=== PATIENT | female | born 1960 | race Caucasian/White ===

== ENCOUNTER 2019-09-04 12:52 | Inpatient (IN) | payer OTHER ==
[~2019-09-04] VITALS: Ht 167.6 cm; Wt 56.7 kg
--- NOTE | 2019-09-04 13:05 | NUR ---
Patient to ER bed 8 to gown for evaluation. Side rails up. Report given to HOLLIS Leon.
[2019-09-04 13:06] VITALS: BP_SYST 143
--- NOTE | 2019-09-04 13:06 | NUR ---
Patient is awake, alert, and oriented x4. Patient is complaining of lower abdominal pain since yesterday. She reports being on amoxicillin for a cold.
--- NOTE | 2019-09-04 13:07 | NUR ---
ER Dr. Jones at bedside examining patient.
[2019-09-04] MEDS ORDERED: NACL 0.9% 1,000 ML IV ONE (13:15)
[2019-09-04] MEDS ORDERED: KETOROLAC TROMETHAMINE 30 MG VIAL IVP ONE (13:15)
--- NOTE | 2019-09-04 13:20 | NUR ---
Patient transported to radiology via wheelchair, accompanied by chief technician x ray.
--- NOTE | 2019-09-04 13:27 | NUR ---
Patient returned from radiology via wheelchair.
[2019-09-04 13:56] LABS: BASOPHILS % (AUTO) 0.5 % (0.0-2.0); EOSINOPHILS % (AUTO) 0.5 % (0.0-4.0); HEMOGLOBIN 10.9 g/dL (12.0-16.0); LYMPHOCYTES # (AUTO) 1.2 K/uL (1.0-5.5); MEAN CORPUSCULAR HEMOGLOBIN 29 pg (27-31); MEAN CORPUSCULAR HGB CONC 34 % (32-36); MEAN CORPUSCULAR VOLUME 86 fL (79.0-98.0); MONOCYTES # (AUTO) 0.5 K/uL (0.0-1.0); MONOCYTES % (AUTO) 6.1 % (1.7-9.3); NEUTROPHILS # (AUTO) 6.7 K/uL (1.8-7.7); NEUTROPHILS % (AUTO) 78.9 % (40.0-70.0); PLATELET COUNT (AUTO) 305 K/uL (130-430); RED BLOOD CELL COUNT(AUTO) 3.72 MIL/uL (4.2-6.2); WHITE BLOOD COUNT (AUTO) 8.5 K/uL (4.8-10.8)
[2019-09-04 14:06] LABS: CALCIUM 8.1 mg/dL (8.4-11.0); CREATININE 0.62 mg/dL (0.55-1.30); POTASSIUM 3.2 mmol/L (3.5-5.1)
[2019-09-04 14:12] LABS: ALBUMIN 2.9 g/dL (3.4-4.8); TOTAL BILIRUBIN 0.6 mg/dL (0.0-1.0)
[2019-09-04 14:44] LABS: BILIRUBIN,URINE NEGATIVE (NEGATIVE); BLOOD, URINE NEGATIVE (NEGATIVE); CLARITY/URINE CLEAR (CLEAR); COLOR,URINE YELLOW (YELLOW); GLUCOSE,URINE NEGATIVE (NEGATIVE); KETONES,URINE TRACE (NEGATIVE); LEUKOCYTE ESTERASE ,URINE NEGATIVE (NEGATIVE); NITRITE, URINE NEGATIVE (NEGATIVE); PROTEIN URINE NEGATIVE (NEGATIVE); UROBILINOGEN,URINE 0.2 (0.2-1.0)
[2019-09-04] MEDS ORDERED: ONDANSETRON HCL 4 MG/2 ML VIAL IVP ONE (15:00)
[2019-09-04] MEDS ORDERED: MORPHINE 4 MG/ML INJ. SYRINGE IVP ONE (15:00)
[2019-09-04] MEDS ORDERED: metroNIDAZOLE 500 mg/NS 100 ML IV ONE (15:00)
[2019-09-04] MEDS ORDERED: LEVOFLOXACIN 500 MG/D5W 100 ML IV ONE (15:00)
--- NOTE | 2019-09-04 16:08 | NUR ---
Orders recieved from Dr. Mota, entered by HOLLIS.
--- NOTE | 2019-09-04 16:09 | NUR ---
Unable to obtain medication list at this time.
--- NOTE | 2019-09-04 16:10 | NUR ---
Patient will be admitted to care of Dr. Mota. Admitted to medsurg unit. Waiting for room assignment. Belongings list completed. Complete and up to date summary report printed. SBAR report to be given at bedside with opportunity for questions.
[2019-09-04] MEDS: KCL 20 mEq in D5/0.45NS 1000mL 1,000 ML IV SCH (16:15)
[2019-09-04 17:03] VITALS: BP_SYST 126
--- NOTE | 2019-09-04 17:03 | NUR ---
Admission: Received from ER on a gurney with the diagnosis of Acute Colitis. Patient is oriented, ambulatory from gurney to bed with steady gait. Accompanied by . Oriented to room, call light within reach.
--- NOTE | 2019-09-04 18:30 | NUR ---
patient tolerates dinner without distress.
[2019-09-04] MEDS ORDERED: KCL 20 mEq in D5/0.45NS 1000mL 1,000 ML IV ONE (18:32)
[2019-09-04] MEDS ORDERED: AZEL6DRO5 EACH EYE (19:29)
[2019-09-04] MEDS ORDERED: OSCD500 PO (19:29)
[2019-09-04] MEDS ORDERED: LORA10TA7 PO (19:29)
[2019-09-04] MEDS ORDERED: NEU300 PO (19:29)
[2019-09-04] MEDS ORDERED: CHOL200075 PO (19:29)
--- NOTE | 2019-09-04 19:40 | NUR ---
ROUNDS PATIENT IN BED, AWAKE, ALERT, ORIENTED, VITALS STABLE. DENIES ANY ABDOMINAL PAIN AT THIS TIME. ASSESSMENT DONE AND DOCUEMNTED. SEE FLOWSHEET. NEEDS ATTENDED TO. FAMILY AT THE BEDSIDE. SAFETY MEASURES IN PLACED. CALL LIGHT PLACED WITHIN REACH.
--- NOTE | 2019-09-04 20:30 | NUR ---
DR. SARAH SMITH SAW THE PATIENT WITH NEW ORDERS. WILL CONTINUE TO MONITOR.
--- NOTE | 2019-09-04 20:47 | NUR ---
CONSULTATION PAGED/CALLED Reason for Consultation: COLITIS Person Who was Notified: DELFINO Consulting Physician: Record Press Tender Specialty: GI Ordering Physician:
--- NOTE | 2019-09-04 20:50 | NUR ---
DR. CK STOVER SAW PATIENT FOR GI CONSULT. WILL CONTINUE TO MONITOR.
[2019-09-04] MEDS ORDERED: metroNIDAZOLE 500 mg/NS 100 ML IV SCH (21:00)
[2019-09-04] MEDS ORDERED: AZELASTINE HCL EACH EYE SCH (21:00)
[2019-09-04] MEDS: KETOROLAC TROMETHAMINE 15 MG VIAL IVP PRN (21:26)
[2019-09-04] MEDS ORDERED: metroNIDAZOLE 500 mg/NS 200 ML IV ONE (22:11)
[2019-09-04] MEDS: PANTOPRAZOLE SODIUM 40 MG/VIAL (PROTONIX) IVP SCH (22:12)
[2019-09-04] MEDS: ENOXAPARIN SODIUM 40 MG/0.4 ML SYRINGE SUBCUT SCH (22:14)
[2019-09-04] MEDS: metroNIDAZOLE 500 mg/NS 100 ML IV SCH (22:18)
--- NOTE | 2019-09-04 22:44 | NUR ---
CONSULTATION PAGED/CALLED Reason for Consultation: ACUTE ABDOMIN Person Who was Notified: SIM Consulting Physician: Machine Fastener Specialty: Ordering Physician:
--- NOTE | 2019-09-05 00:14 | NUR ---
ROUNDS PATIENT ASLEEP, RESPIRATIONS EVEN AND UNLABORED, NO PAIN AND DISCOMFORT NOTED. WILL CONTINUE TO MONITOR.
[2019-09-05 02:52] VITALS: BP_SYST 122
--- NOTE | 2019-09-05 04:13 | NUR ---
PATIENT RESTING: Patient resting quietly. No acute distress noted. Vital signs within normal range.
[2019-09-05] MEDS: KCL 20 mEq in D5/0.45NS 1000mL 1,000 ML IV SCH ×3 (05:35→23:35)
[2019-09-05] MEDS: metroNIDAZOLE 500 mg/NS 100 ML IV SCH ×3 (05:46→22:17)
--- NOTE | 2019-09-05 06:37 | NUR ---
CLOSING NOTES PATIENT AWAKE, VITALS STABLE, NO COMPLAINTS AT THIS TIME. ALL NEEDS ATTENDED TO. SAFETY MEASURES MAINTAINED. CALL LIGHT PLACED WITHIN REACH.
--- NOTE | 2019-09-05 08:00 | NUR ---
PATIENT IS RESTING, A/OX4. NPO, ON ROOM AIR. POC IS EXPLAINED. IV FLUIDS INFUSING, SITE INTACT AND PATENT. CALL LIGHT IN PLACE, BED LOCKED AT THE LOWEST POSITION, WILL CONTINUE TO MONITOR.
[2019-09-05] MEDS: PANTOPRAZOLE SODIUM 40 MG/VIAL (PROTONIX) IVP SCH ×2 (08:42→20:03)
[2019-09-05] MEDS ORDERED: DIATR MEGLU/DIATRIZ SOD 30 ML SOLUTION PO ONE (09:04)
[2019-09-05 09:52] LABS: BASOPHILS % (AUTO) 0.4 % (0.0-2.0); EOSINOPHILS % (AUTO) 0.2 % (0.0-4.0); HEMATOCRIT 31.6 % (36-48); HEMOGLOBIN 10.7 g/dL (12.0-16.0); LYMPHOCYTES # (AUTO) 1.1 K/uL (1.0-5.5); LYMPHOCYTES % (AUTO) 21.9 % (20.5-51.5); MEAN CORPUSCULAR HEMOGLOBIN 30 pg (27-31); MEAN CORPUSCULAR HGB CONC 34 % (32-36); MEAN CORPUSCULAR VOLUME 88 fL (79.0-98.0); MONOCYTES # (AUTO) 0.3 K/uL (0.0-1.0); MONOCYTES % (AUTO) 5.3 % (1.7-9.3); NEUTROPHILS # (AUTO) 3.5 K/uL (1.8-7.7); NEUTROPHILS % (AUTO) 72.2 % (40.0-70.0); PLATELET COUNT (AUTO) 335 K/uL (130-430); RED BLOOD CELL COUNT(AUTO) 3.62 MIL/uL (4.2-6.2); RED CELL DISTRIBUTION WIDTH 13.7 % (9.0-15.0); WHITE BLOOD COUNT (AUTO) 4.9 K/uL (4.8-10.8)
[2019-09-05 10:08] LABS: CALCIUM 8.7 mg/dL (8.4-11.0); CREATININE 0.59 mg/dL (0.55-1.30); POTASSIUM 3.9 mmol/L (3.5-5.1)
[2019-09-05 10:19] VITALS: BP_SYST 120
[2019-09-05] MEDS ORDERED: IOHEXOL 100 ML IV ONE (10:39)
--- NOTE | 2019-09-05 10:40 | NUR ---
PATIENT IS TAKEN TO CT SCAN AND BACK. TOLERATED WITHOUT DISTRESS.
--- NOTE | 2019-09-05 13:00 | NUR ---
PATIENT IS WATCHING TV AT THIS TIME. STATES HER ABDOMINAL PAIN IS MINIMAL, 09/03.
--- NOTE | 2019-09-05 14:00 | NUR ---
PATIENT HAS A SHOWER. TOLERATES WITHOUT DISTRESS.
[2019-09-05] MEDS ORDERED: WITCH HAZEL LEAF 1 MED.PAD MED.PAD TP ONE (14:45)
[2019-09-05 16:00] VITALS: BP_SYST 135
--- NOTE | 2019-09-05 16:10 | NUR ---
PATIENT IS RESTING, NO SIGNS OF DISTRESS NOTED.
--- NOTE | 2019-09-05 19:00 | NUR ---
DR. STOVER AND DR. SMITH ARE AT BEDSIDE TO DISCUSS ON POC.
--- NOTE | 2019-09-05 19:40 | NUR ---
ROUNDS PATIENT RESTING COMFORTABLY IN BED, VITALS STABLE, DENIES ANY PAIN AND DISCOMFORT AT THIS TIME. ASSESSMENT DONE AND DOCUMENTED.SEE FLOWSHEET. NEEDS ATTENDED TO. SAFETY MEASURES IN PLACED. CALL LIGHT PLACED WITHIN REACH.
[2019-09-05 20:00] VITALS: BP_SYST 139
[2019-09-05] MEDS: GABAPENTIN 300 MG CAPSULE PO SCH (20:01)
[2019-09-05] MEDS: ENOXAPARIN SODIUM 40 MG/0.4 ML SYRINGE SUBCUT SCH (20:03)
[2019-09-05] MEDS: AZELASTINE 0.05% OP SCH (21:00)
--- NOTE | 2019-09-05 21:14 | NUR ---
MEDICATION DUE MEDICATIONS GIVEN SCHEDULED, TOLERATED WELL. WILL CONTINUE TO MONITOR.
[2019-09-05] MEDS: KETOROLAC TROMETHAMINE 15 MG VIAL IVP PRN (22:23)
[2019-09-06] VITALS: BP_SYST 128
--- NOTE | 2019-09-06 00:10 | NUR ---
PATIENT RESTING: Patient resting quietly. No acute distress noted. Vital signs within normal range.
--- NOTE | 2019-09-06 02:17 | NUR ---
ROUNDS PATIENT ASLEEP, RESPIRATIONS EVEN AND UNLABORED, NO SIGNS OF PAIN AND DISCOMFORT NOTED. WILL CONTINUE TO MONITOR.
--- NOTE | 2019-09-06 04:23 | NUR ---
PATIENT RESTING: Patient resting quietly. No acute distress noted. Vital signs within normal range.
[2019-09-06] MEDS: metroNIDAZOLE 500 mg/NS 100 ML IV SCH ×3 (05:31→21:38)
[2019-09-06] MEDS: KETOROLAC TROMETHAMINE 15 MG VIAL IVP PRN (05:31)
[2019-09-06 08:00] VITALS: BP_SYST 135
[2019-09-06] MEDS: PANTOPRAZOLE SODIUM 40 MG/VIAL (PROTONIX) IVP SCH ×2 (09:00→21:52)
[2019-09-06] MEDS: AZELASTINE 0.05% OP SCH ×2 (09:00→21:00)
[2019-09-06 12:00] VITALS: BP_SYST 132
[2019-09-06] MEDS: KCL 20 mEq in D5/0.45NS 1000mL 1,000 ML IV SCH (14:21)
--- NOTE | 2019-09-06 14:47 | NUR ---
SS NOTE: CARTRIDGE GAUGER was referred by CM to see patient for DCP. Demographic information confirmed. CARTRIDGE GAUGER met with patient and at bedside. Pt is a 58 y/o female who came in for abdominal pain. Pt lives with spouse and is independent with all her ADL's. Pt denies any history of mental health or substance use. Pt does not have an advanced directive and is not interested in formulating one right now. Pt states she is being discharged home. No further SS needs identified at this time, but will remain available for resources if needed.
--- NOTE | 2019-09-06 15:48 | NUR ---
Patient is tolerating fluids very well, no nausea or vomiting present. Patient is asking if she can get a regular diet at dinner, I will contact MD to see if he will clear her for a regular diet.
[2019-09-06 16:00] VITALS: BP_SYST 134
--- NOTE | 2019-09-06 18:31 | NUR ---
Patient was advanced to regular diet by , patient is doing well and seems happy that she is going home tomorrow.
[2019-09-06 19:00] VITALS: BP_SYST 122
[2019-09-06] MEDS: GABAPENTIN 300 MG CAPSULE PO SCH (21:38)
[2019-09-06] MEDS: ENOXAPARIN SODIUM 40 MG/0.4 ML SYRINGE SUBCUT SCH (21:38)
[2019-09-07] MEDS: KETOROLAC TROMETHAMINE 15 MG VIAL IVP PRN (03:33)
[2019-09-07] MEDS: KCL 20 mEq in D5/0.45NS 1000mL 1,000 ML IV SCH (03:35)
[2019-09-07] MEDS: metroNIDAZOLE 500 mg/NS 100 ML IV SCH ×2 (05:55→18:22)
[2019-09-07 08:00] VITALS: BP_SYST 138
[2019-09-07] MEDS: PANTOPRAZOLE SODIUM 40 MG/VIAL (PROTONIX) IVP SCH (10:34)
[2019-09-07 11:22] VITALS: BP_SYST 113
[2019-09-07 15:45] VITALS: BP_SYST 133
[2019-09-07] MEDS: GABAPENTIN 300 MG CAPSULE PO SCH (18:32)
[2019-09-07 19:14] VITALS: BP_SYST 133
--- NOTE | 2019-09-07 19:40 | NUR ---
D/C Patient Patient given medication reconciliation form and D/C instructions. Exit Care provided. Patient verbalized understanding. MD discussed with patient the results and treatment provided. Ambulatory with steady gait for discharge to home. Patient in stable condition, ID band removed. IV catheter removed, intact and dressing applied, no active bleeding. Rx of medications given. Patient educated on pain management. All belongings sent with patient. Patient informed to follow up with Dr. Bocanegra in one week. Patient stated she will make an appointment.
== END 2019-09-07 19:40 | disposition home or self-care (01) | DRG 392 ==
LOC: EDSEX 12:52 → SED 12:52 → SMU 16:06
PROVIDERS: ADMIT Family Medicine; ATTEND Family Medicine
DX: K52.9 Noninfective gastroenteritis and colitis, unspecified (principal); K57.80 Diverticulitis of intestine, part unspecified, with perforation and abscess without bleeding; E44.0 Moderate protein-calorie malnutrition; K57.90 Diverticulosis of intestine, part unspecified, without perforation or abscess without bleeding; G89.29 Other chronic pain; D64.9 Anemia, unspecified; K59.00 Constipation, unspecified; M19.011 Primary osteoarthritis, right shoulder; Z68.20 Body mass index [BMI] 20.0-20.9, adult; Z79.899 Other long term (current) drug therapy
CPT/HCPCS: 36415; 76700-TC; 80048; 80053; 81003; 83735-TC; 85025; 87040-TC; 96361; 96365; 96367; 99285; C9113; J1650; J1885; J1956; J2270; J2405; J3490; Q9964; Q9967